=== PATIENT | female | born 1940 | race Caucasian/White ===

== ENCOUNTER → 2018-11-23 | Outpatient (CLI) | payer MEDICARE ==
[2018-11-23 15:43] LABS: URINE COLOR YELLOW
[2018-11-23 15:44] LABS: URINE APPEARANCE CLEAR; URINE BILIRUBIN NEGATIVE (NEGATIVE); URINE BLOOD TRACE (NEGATIVE); URINE GLUCOSE NEGATIVE (NEGATIVE); URINE KETONE NEGATIVE (NEGATIVE); URINE LEUKOCYTE ESTERASE 1+ (NEGATIVE); URINE NITRATE NEGATIVE (NEGATIVE); URINE PROTEIN(semi-quant) NEGATIVE (NEGATIVE); URINE UROBILINOGEN NORMAL (NORMAL)
== END ==
LOC: LAB 13:54
PROVIDERS: Family Medicine
DX: N39.0 Urinary tract infection, site not specified (principal)

== ENCOUNTER → 2019-02-20 | Outpatient (CLI) | payer MEDICARE ==
[2019-02-20 16:47] LABS: HEMOGLOBIN 11.8 g/dL (12.5-16.0); MEAN CELL VOLUME 100 fl (78-100); MEAN CORPUSCULAR HEMOGLOBIN 31 pg (27-31); MEAN CORPUSCULAR HGB CONC 31 g/dL (33-37); MEAN PLATELET VOLUME 9.4 fl (7.4-10.4); PLATELET COUNT 196 K/mm3 (130-400); RED BLOOD COUNT 3.79 M/mm3 (4.10-5.30); RED CELL DISTRIBUTION WIDTH 15.4 % (11.5-14.5); WHITE BLOOD COUNT 6.7 K/mm3 (4.8-10.8)
[2019-02-20 17:16] LABS: POTASSIUM 4.2 mmol/L (3.5-5.1)
[2019-02-20 17:17] LABS: ALBUMIN 3.7 g/dL (3.4-4.8)
[2019-02-20 17:19] LABS: TOTAL PROTEIN 6.6 g/dL (6.2-8.1)
[2019-02-20 17:20] LABS: LYMPHOCYTE 16 % (20-51); MONOCYTE 11 % (3-10); NEUTROPHILS 72 % (42-75)
[2019-02-20 17:21] LABS: TOTAL BILIRUBIN 0.2 mg/dL (0.2-1.2)
== END ==
LOC: LAB 16:27
PROVIDERS: Family Medicine
DX: Z01.419 Encounter for gynecological examination (general) (routine) without abnormal findings (principal); Z13.220 Encounter for screening for lipoid disorders; E11.9 Type 2 diabetes mellitus without complications; E03.9 Hypothyroidism, unspecified; M81.0 Age-related osteoporosis without current pathological fracture; S32.020A Wedge compression fracture of second lumbar vertebra, initial encounter for closed fracture; M51.36 Other intervertebral disc degeneration, lumbar region; M41.86 Other forms of scoliosis, lumbar region

== ENCOUNTER → 2019-02-25 | Outpatient (CLI) | payer MEDICARE | LOC: RAD 14:42 | DX: R60.0 Localized edema (principal) ==

== ENCOUNTER → 2019-02-27 | Outpatient (CLI) | payer MEDICARE | LOC: RAD 09:12 | DX: M48.061 Spinal stenosis, lumbar region without neurogenic claudication (principal); M41.86 Other forms of scoliosis, lumbar region; M51.16 Intervertebral disc disorders with radiculopathy, lumbar region; M43.8X6 Other specified deforming dorsopathies, lumbar region ==